=== PATIENT | female | born 1960 | race Caucasian/White ===

== ENCOUNTER 2023-05-31 13:30 | Emergency (ER) | payer OTHER ==
[~2023-05-31] VITALS: Ht 154.9 cm; Wt 86.2 kg
[2023-05-31 13:32] VITALS: BP 121/73; PULSE 86; RESP 18; TEMP 98.1; O2SAT 99
[2023-05-31] MEDS: MECLIZINE 25 MG TAB PO ONE (14:46)
[2023-05-31 15:46] LABS: BASOPHILS # (AUTO) 0.1 K/uL (0.00-0.22); BASOPHILS % (AUTO) 1.4 % (0.0-2.0); EOSINOPHILS # (AUTO) 0.1 K/uL (0-0.4); EOSINOPHILS % (AUTO) 1.6 % (0.0-4.0); HEMATOCRIT 39.8 % (36-48); HEMOGLOBIN 13.4 g/dL (12.0-16.0); LYMPHOCYTES # (AUTO) 1.8 K/uL (2.5-16.5); LYMPHOCYTES % (AUTO) 23.9 % (20.5-51.1); MEAN CORPUSCULAR HEMOGLOBIN 29 pg (27-31); MEAN CORPUSCULAR HGB CONC 34 g/dL (33-37); MEAN CORPUSCULAR VOLUME 86.4 fL (80-94); MONOCYTES # (AUTO) 0.6 K/uL (0.8-1.0); MONOCYTES % (AUTO) 7.7 % (1.7-9.3); NEUTROPHILS # (AUTO) 4.8 K/uL (1.8-7.7); NEUTROPHILS % (AUTO) 65.4 % (42.2-75.2); PLATELET COUNT (AUTO) 196 K/uL (140-450); RED CELL DISTRIBUTION WIDTH 13.8 % (11.6-13.7); WHITE BLOOD COUNT (AUTO) 7.4 K/uL (4.8-10.8)
[2023-05-31 15:54] LABS: ANION GAP 8.3 (8-16); CALCIUM 8.5 mg/dL (8.5-10.1); CARBON DIOXIDE 31.6 mmol/L (21-32); CREATININE 0.8 mg/dL (0.6-1.3); POTASSIUM 3.9 mmol/L (3.5-5.1)
[2023-05-31] MEDS: NACL 0.9% 1,000 ML IV ONE (18:06)
[2023-05-31 18:55] VITALS: TEMP 98.1
[2023-05-31] MEDS ORDERED: DIAZ2TAB6 PO (19:16)
[2023-05-31 19:29] VITALS: BP 134/60; PULSE 78; RESP 16; O2SAT 96
== END 2023-05-31 19:29 | disposition home or self-care (01) ==
LOC: MED 13:30
DX: R42 Dizziness and giddiness (principal); D32.0 Benign neoplasm of cerebral meninges; E78.00 Pure hypercholesterolemia, unspecified; Z79.899 Other long term (current) drug therapy
CPT/HCPCS: 36415; 70450; 70496; 70498; 71045; 80048; 84484; 85025; 93005; 96360; 99285; J8597; Q9967; J7030

== ENCOUNTER 2023-07-18 13:03 | Emergency (ER) | payer OTHER ==
[~2023-07-18] VITALS: Ht 154.9 cm; Wt 69.4 kg
[~2023-07-18 13:03] MED LIST: DIAZ2TAB6 PO
[2023-07-18 13:26] VITALS: BP 112/71; PULSE 69; RESP 16; TEMP 97.7; O2SAT 95
[2023-07-18 15:26] LABS: BASOPHILS # (AUTO) 0.1 K/uL (0.00-0.22); EOSINOPHILS # (AUTO) 0.1 K/uL (0-0.4); EOSINOPHILS % (AUTO) 1.4 % (0.0-4.0); HEMATOCRIT 42.6 % (36-48); HEMOGLOBIN 14.4 g/dL (12.0-16.0); LYMPHOCYTES # (AUTO) 1.8 K/uL (2.5-16.5); LYMPHOCYTES % (AUTO) 24.9 % (20.5-51.1); MEAN CORPUSCULAR HEMOGLOBIN 29 pg (27-31); MEAN CORPUSCULAR HGB CONC 34 g/dL (33-37); MEAN CORPUSCULAR VOLUME 86.7 fL (80-94); MONOCYTES # (AUTO) 0.5 K/uL (0.8-1.0); MONOCYTES % (AUTO) 7.2 % (1.7-9.3); NEUTROPHILS # (AUTO) 4.8 K/uL (1.8-7.7); NEUTROPHILS % (AUTO) 65.5 % (42.2-75.2); PLATELET COUNT (AUTO) 216 K/uL (140-450); RED BLOOD CELL COUNT(AUTO) 4.91 MIL/uL (4.20-5.40); RED CELL DISTRIBUTION WIDTH 13.8 % (11.6-13.7); WHITE BLOOD COUNT (AUTO) 7.3 K/uL (4.8-10.8)
[2023-07-18 16:32] LABS: FLU A ANTIGEN negative (NEGATIVE); FLU B ANTIGEN NEGATIVE (NEGATIVE)
[2023-07-18 16:37] LABS: CALCIUM 9.6 mg/dL (8.5-10.1); CREATININE 0.6 mg/dL (0.6-1.3); POTASSIUM 3.9 mmol/L (3.5-5.1)
[2023-07-18 16:57] LABS: ANION GAP 16.4 (8-16); CARBON DIOXIDE 25.5 mmol/L (21-32)
[2023-07-18] MEDS ORDERED: BENZ200C4 PO (19:32)
[2023-07-18] MEDS ORDERED: DOXY-487 PO (19:32)
[2023-07-18] MEDS ORDERED: AMOX500C25 PO (19:32)
[2023-07-18] MEDS ORDERED: ALBU6.7H6 IH (19:32)
[2023-07-18 19:42] VITALS: BP 131/71; PULSE 61; RESP 16; TEMP 98.2; O2SAT 99
== END 2023-07-18 19:42 | disposition home or self-care (01) ==
LOC: MED 13:03
DX: J18.9 Pneumonia, unspecified organism (principal); R06.00 Dyspnea, unspecified; R06.02 Shortness of breath; Z20.822 Contact with and (suspected) exposure to COVID-19; Z79.899 Other long term (current) drug therapy; Z98.890 Other specified postprocedural states
CPT/HCPCS: 36415; 71046; 71275; 80048; 83880; 84484; 85025; 85379; 87426; 87804; 93005; 99285; Q9967